=== PATIENT | female | born 1970 | race Caucasian/White ===

== ENCOUNTER 2023-09-30 21:01 | Emergency (ER) | payer BC, SELFPAY ==
[2023-09-30] VITALS (7 sets, daily range): BP systolic 101–120; BP diastolic 70–78; PULSE 62–67; RESP 16–28; TEMP 36.4; O2SAT 94–99; BMI 21.5
--- NOTE | 2023-09-30 21:12 | DI.RAD.S_ITS ---
PROCEDURE: XR CHEST 1V INDICATIONS: chest pain TECHNIQUE: One view of the chest was acquired. COMPARISON: None. FINDINGS: Surgical changes and devices: None. Lungs and pleura: Lungs are clear. No pleural effusions or pneumothorax. Mediastinum: Mediastinal contours appear normal. Heart size is normal. Bones and chest wall: No suspicious bony lesions. Overlying soft tissues appear unremarkable. IMPRESSION: No acute cardiopulmonary abnormality is seen. Approved by: Lul Alvarez M.D. on 09/30/2023 at 21:54
[2023-09-30 21:48] LABS: Add Manual Diff / Slide Review NO; Basophils Absolute Auto 0 /uL (0-100); Basophils Percent Auto 0.7 % (0-2); Eosinophils Absolute Auto 100 /uL (0-450); Eosinophils Percent Auto 2.7 % (2-4); Hemoglobin 14.7 g/dL (12.0-16.0); Lymphocytes Absolute Auto 1700 /uL (1100-4500); Lymphocytes Percent Auto 40.8 % (25-40); Mean Corpuscular HGB Conc 33.5 % (30-36); Mean Corpuscular Hemoglobin 31.3 PG (26-34); Mean Corpuscular Volume 93.4 fL (80-100); Monocytes Absolute Auto 300 /uL (0-900); Monocytes Percent Auto 7.9 % (3-14); Neutrophils Absolute Auto 1900 /uL (1500-7000); Neutrophils Percent Auto 47.9 % (50-75); Platelet Count 165 X10^3/uL (150-400); Red Blood Cell Count 4.71 X10^6/uL (4.0-5.2); Red Cell Distribution Width 13.6 % (11.6-14.8)
--- NOTE | 2023-09-30 21:51 | ED.CHESTPAIN ---
HPI - Chest Pain General Chief Complaint: Chest Pain Stated Complaint: heart attach sypmtoms Time Seen by Provider: 09/30/23 21:29 Source: patient Mode of arrival: Ambulatory Limitations: no limitations History of Present Illness HPI narrative: Patient is a 52-year-old female who has been having off and on chest discomfort for the past several days/weeks. She states that it does seem to be on both sides of her chest but earlier today was on the right side. No shortness of breath. No lower extremity swelling. Has seen her primary doctor. Had an EKG. Was told that she should follow up with a carbon capture power plant engineer. Has an appointment with cardiology of the end of this month. She was told by her primary doctor for any of her symptoms continue to worsen that she should be evaluated. She denies abdominal pain or nausea vomiting. No prior history of heart disease. Related Data Previous Rx's Medication Instructions Recorded doxycycline hyclate 100 mg capsule 100 mg PO BID #14 caps 06/03/22 nirmatrelvir 300 mg (150 mg See Rx Instructions PO .COMPLEX 06/03/22 x2)-ritonavir 100 mg tablet,dose #30 ea pack (Paxlovid) Allergies Allergy/AdvReac Type Severity Reaction Status Date / Time Sulfa (Sulfonamide AdvReac Unknown Rash Verified 09/30/23 21:04 Antibiotics) [SULFA (SULFONAMIDE ANTIBIOTICS)] Review of Systems Review of Systems Narrative: See HPI Patient History Social History Smoking Status: Never smoker Smoking Status: Never smoker Substance Use Type: does not use Exam Initial Vital Signs Initial Vital Signs: Vital Signs Temperature 97.5 F L 09/30/23 21:04 Pulse Rate 67 09/30/23 21:04 Respiratory Rate 16 09/30/23 21:04 Blood Pressure 120/76 09/30/23 21:04 Pulse Oximetry 97 09/30/23 21:04 Oxygen Delivery Method Room Air 09/30/23 21:04 Const General: cooperative, comfortable and No ill appearing HENMT Head: normal to inspection and normocephalic Resp Effort & Inspection: normal respiratory effort Auscultation: clear to auscultation bilaterally Cardio Rate: regular rate Rhythm: regular rhythm GI Inspection: normal to inspection Extrem General: No edema Scores HEART Score Heart Score history: Slightly Suspicious Heart Score EKG: Normal Heart Score Age: 45-64 years old Heart Score risk factors: No known risk factors Heart Score troponin: < or = to normal limit Heart Score Total: 1 Course Orders Ordered: ED Orders 09/30/23 21:12 XR chest 1V Stat EKG-12 Lead Stat 09/30/23 21:36 Complete Blood Count AUTO DIFF Stat Comprehensive Metabolic Panel Stat Lipase Stat Magnesium Stat PTT Partial Thromboplastin Gio Stat Prothrombin Time INR Stat Troponin & CK Cardiac Panel Stat Vital Signs Vital signs: Vital Signs - 8 hr 09/30/23 21:04 09/30/23 21:13 09/30/23 21:13 Temperature 97.5 F L Pulse Rate 67 66 Respiratory Rate 16 19 Blood Pressure 120/76 110/78 Pulse Oximetry 97 97 Oxygen Delivery Method Room Air 09/30/23 21:30 09/30/23 22:00 09/30/23 22:17 Temperature Pulse Rate 66 67 62 Respiratory Rate 18 28 H 25 H Blood Pressure Pulse Oximetry 99 98 96 Oxygen Delivery Method 09/30/23 22:17 09/30/23 22:30 09/30/23 22:30 Temperature Pulse Rate 63 Respiratory Rate 21 Blood Pressure 102/72 101/72 Pulse Oximetry 94 Oxygen Delivery Method 09/30/23 23:00 09/30/23 23:00 Temperature Pulse Rate 64 Respiratory Rate 22 Blood Pressure 103/70 Pulse Oximetry 94 Oxygen Delivery Method MDM - Chest Pain Lab Data Attestation: I reviewed the patient's lab results. 09/30/23 21:36 09/30/23 21:36 Labs: Lab Results 09/30/23 Range/Units 21:36 WBC 4.0 L (4.5-11.0) X10^3/uL RBC 4.71 (4.0-5.2) X10^6/uL Hgb 14.7 (12.0-16.0) g/dL Hct 44.0 (36-46) % MCV 93.4 (80-100) fL MCH 31.3 (26-34) PG MCHC 33.5 (30-36) % RDW 13.6 (11.6-14.8) % Plt Count 165 (150-400) X10^3/uL Neut % (Auto) 47.9 L (50-75) % Lymph % (Auto) 40.8 H (25-40) % Guthrie % (Auto) 7.9 (3-14) % Eos % (Auto) 2.7 (2-4) % Baso % (Auto) 0.7 (0-2) % Neut # (Auto) 1900 (2487-8700) /uL Lymph # (Auto) 1700 (7698-9890) /uL Guthrie # (Auto) 300 (0-900) /uL Eos # (Auto) 100 (0-450) /uL Baso # (Auto) 0 (0-100) /uL PT 11.1 (9.4-12.5) SECONDS INR 1.0 (0.9-1.3) APTT 21 L (25.1-36.5) SECONDS Sodium 140 (137-145) mmol/L Potassium 4.3 (3.4-5.1) mmol/L Chloride 103 (98-107) mmol/L Carbon Dioxide 30 (22-32) mmol/L BUN 10 (7-17) mg/dL Creatinine 0.53 (0.52-1.04) mg/dL Estimated GFR > 60 (>60) mL/min BUN/Creatinine Ratio 18.9 (6-22) Glucose 71 (70-100) mg/dL Calcium 10.1 (8.4-10.2) mg/dL Magnesium 2.1 (1.6-2.3) mg/dL Total Bilirubin 0.7 (0.2-1.3) mg/dL AST 59 H (14-36) IU/L ALT 31 (<35) IU/L Alkaline Phosphatase 60 (38-126) U/L Total Creatine Kinase 90 (30-135) U/L Troponin I < 0.012 (0.01-0.034) ng/mL Total Protein 8.5 H (6.3-8.2) g/dL Albumin 5.1 H (3.5-5.0) g/dL Globulin 3.4 (1.7-4.1) g/dL Albumin/Globulin Ratio 1.5 (1.0-2.8) Lipase 289 (23-300) U/L Imaging Data Chest x-ray: Radiologist's Impression: PROCEDURE: XR CHEST 1V INDICATIONS: chest pain TECHNIQUE: One view of the chest was acquired. COMPARISON: None. FINDINGS: Surgical changes and devices: None. Lungs and pleura: Lungs are clear. No pleural effusions or pneumothorax. Mediastinum: Mediastinal contours appear normal. Heart size is normal. Bones and chest wall: No suspicious bony lesions. Overlying soft tissues appear unremarkable. IMPRESSION: No acute cardiopulmonary abnormality is seen. ECG Data Attestation: I personally reviewed and interpreted this ECG as follows: Interpretation: Sinus rhythm Ventricular rate is 72 Normal axis Normal QRS Normal QTC No ST T wave changes MDM Narrative Medical decision making narrative: Low risk heart score, nonischemic EKG, negative troponin, chest x-ray is unremarkable. I have low suspicion that this is ACS although a stress test and follow-up with cardiology would be warranted his next steps. She can contact her primary doctor for this and to keep her appointment with cardiology for later this month. No indication to change any current medications. She was given return precautions and follow-up instructions. She expressed understanding and agreement. Discharge Plan Departure Patient Disposition: Home Clinical Impression: Atypical chest pain Instructions: DI for Atypical Chest Pain Activity Restrictions/Additional Instructions: I recommend that you talk with your primary doctor about potentially getting a stress test performed before you see your carbon capture power plant engineer at the end of the month. I do recommend that you keep that appointment with the carbon capture power plant engineer. Return to the emergency department for new symptoms. Prescriptions: No Action Paxlovid 300 mg (150 mg x 2)-100 mg tablets,dose pack See Rx Instructions PO .COMPLEX Qty: 30 0RF Rx Instructions: take TWO 150 mg tablets of nirmatrelvir with ONE 100 mg tablet of ritonavir twice daily for 5 days PO doxycycline hyclate 100 mg capsule 100 mg PO BID Qty: 14 0RF Referrals: Bryson Branch MD [Primary Care Provider] - Stand Alone Forms: Patient Portal/API
[2023-09-30 21:56] LABS: Prothrombin Time 11.1 SECONDS (9.4-12.5)
[2023-09-30 21:58] LABS: PTT Partial Thromboplastin Tim 21 SECONDS (25.1-36.5)
[2023-09-30 22:01] LABS: Alanine Aminotransferase 31 IU/L (<35); Albumin 5.1 g/dL (3.5-5.0); Albumin Globulin Ratio 1.5 (1.0-2.8); Alkaline Phosphatase 60 U/L (38-126); Aspartate Aminotransferase 59 IU/L (14-36); BUN Creatinine Ratio 18.9 (6-22); Bilirubin Total 0.7 mg/dL (0.2-1.3); Blood Urea Nitrogen 10 mg/dL (7-17); Calcium 10.1 mg/dL (8.4-10.2); Carbon Dioxide 30 mmol/L (22-32); Chloride 103 mmol/L (98-107); Creatine Kinase 90 U/L (30-135); Estimated Glomerular Filt Rate > 60 mL/min (>60); Globulin 3.4 g/dL (1.7-4.1); Glucose 71 mg/dL (70-100); Lipase 289 U/L (23-300); Magnesium 2.1 mg/dL (1.6-2.3); Potassium 4.3 mmol/L (3.4-5.1); Sodium 140 mmol/L (137-145); Total Protein 8.5 g/dL (6.3-8.2)
[2023-09-30 22:02] LABS: HEMOLYSIS 57 (0-50)
[2023-09-30 22:12] LABS: Troponin I < 0.012 ng/mL (0.01-0.034)
== END 2023-09-30 23:28 | disposition home or self-care (01) ==
PROVIDERS: Emergency Provider Emergency Medicine; PCP Family Medicine
DX: R07.89 Other chest pain (principal)
CPT/HCPCS: 36415; 71045; 80053; 82550; 83690; 83735; 84484; 85025; 85610; 85730; 93005; 99284

== ENCOUNTER 2023-10-08 18:48 | Emergency (ER) | payer BC, SELFPAY ==
[2023-10-08] VITALS (57 sets, daily range): BP systolic 101–139; BP diastolic 66–90; PULSE 53–72; RESP 18; TEMP 36.6; O2SAT 94–100; BMI 21.5
--- NOTE | 2023-10-08 19:00 | DI.RAD.S_ITS ---
PROCEDURE: XR KNEE RT 3V INDICATIONS: Fall onto rocks, wrist splinted. TECHNIQUE: 3 views of the knee were acquired. COMPARISON: None. FINDINGS: Bones: No displaced fracture or dislocation. Patellar enthesopathy. Soft tissues: Small knee joint effusion. Possible prepatellar swelling. IMPRESSION: No acute radiographic abnormality. Small knee joint effusion. If there is high concern for occult injury, consider repeat radiography or cross-sectional imaging. Dictated by: David Villar M.D. on 10/08/2023 at 19:38 Approved by: David Villar M.D. on 10/08/2023 at 19:39
--- NOTE | 2023-10-08 19:00 | DI.RAD.S_ITS ---
PROCEDURE: XR FOREARM LT 2V INDICATIONS: Fall onto rocks, wrist splinted. TECHNIQUE: 2 views of the forearm were acquired. COMPARISON: None. FINDINGS: Bones: No displaced fracture of the radial or ulnar shafts. Wrist findings are separately dictated. Soft tissues: Soft tissue swelling is seen in the distal forearm. IMPRESSION: No acute osseous abnormality in the forearm. Wrist fracture findings are separately dictated Dictated by: David Villar M.D. on 10/08/2023 at 19:36 Approved by: David Villar M.D. on 10/08/2023 at 19:37
--- NOTE | 2023-10-08 19:00 | DI.RAD.S_ITS ---
PROCEDURE: XR WRIST LT MIN 3V INDICATIONS: Fall onto rocks, wrist splinted. TECHNIQUE: 3 views of the wrist were acquired. COMPARISON: None. FINDINGS: Bones: Moderately comminuted, impacted, and volar angulation of the distal radius fracture. Minimally displaced ulnar styloid fracture. Soft tissues: Soft tissue swelling. IMPRESSION: Moderately comminuted, impacted, and angulated distal radius fracture. Minimally displaced ulnar styloid fracture. The scapholunate interval is mildly prominent between 2-3 mm. Dictated by: David Villar M.D. on 10/08/2023 at 19:37 Approved by: David Villar M.D. on 10/08/2023 at 19:38
--- NOTE | 2023-10-08 19:04 | DI.RAD.S_ITS ---
PROCEDURE: XR CHEST 2V INDICATIONS: Fall onto rocks right flank pain TECHNIQUE: 2 views of the chest were acquired. COMPARISON: Located Within [facility], CR, XR CHEST 1V, 09/30/2023, 21:12. FINDINGS: Surgical changes and devices: None. Lungs and pleura: No dense airspace disease or pleural effusion Mediastinum: Normal heart size Bones and chest wall: Unremarkable IMPRESSION: No acute radiographic abnormality. If there is high concern for occult injury, consider repeat radiography or cross-sectional imaging. Dictated by: David Villar M.D. on 10/08/2023 at 19:39 Approved by: David Villar M.D. on 10/08/2023 at 19:40
--- NOTE | 2023-10-08 19:24 | ED.FALL ---
HPI - Fall General Chief Complaint: Fall Stated Complaint: Fall, L Wrist/R Knee/Ribs injured Time Seen by Provider: 10/08/23 19:24 Source: patient Mode of arrival: Ambulatory History of Present Illness HPI Narrative: 52-year-old female was walking around [place] on [facility] approximally 3:00 p.m., fell tripping on a rock, groundlevel fall, complains of left wrist pain and deformity, right lower anterior chest discomfort, right anterior knee abrasion discomfort. Was assisted off trail by other hikers to her car. Drove to [facility], ground transport arrival to ED for further evaluation. No loss of consciousness, neck pain, upper back pain, lower back pain. Denies trouble breathing. No facial pain, headache, vision changes, tooth or tongue pain. No other injuries. She does not take blood thinner medications. Related Data Previous Rx's Medication Instructions Recorded doxycycline hyclate 100 mg capsule 100 mg PO BID #14 caps 06/03/22 nirmatrelvir 300 mg (150 mg See Rx Instructions PO .COMPLEX 06/03/22 x2)-ritonavir 100 mg tablet,dose #30 ea pack (Paxlovid) tramadol 50 mg tablet 50 mg PO Q6H PRN pain 5 days #20 10/09/23 tabs Allergies Allergy/AdvReac Type Severity Reaction Status Date / Time Sulfa (Sulfonamide AdvReac Unknown Rash Verified 10/08/23 18:59 Antibiotics) [SULFA (SULFONAMIDE ANTIBIOTICS)] Review of Systems Review of Systems ROS Unobtainable: All systems reviewed & are unremarkable except as noted in HPI and below Patient History Social History Smoking Status: Never smoker Smoking Status: Never smoker Substance Use Type: does not use Exam Narrative Exam Narrative: No distress, clear speech, left wrist in splint from EMS Initial Vital Signs Initial Vital Signs: Vital Signs Temperature 97.9 F 10/08/23 18:51 Pulse Rate 58 L 10/08/23 18:51 Respiratory Rate 18 10/08/23 18:51 Blood Pressure 139/90 10/08/23 18:51 Pulse Oximetry 99 10/08/23 18:51 Oxygen Delivery Method Room Air 10/08/23 18:51 Const General: cooperative HENMT Head: normal to inspection Nose: external nose normal Face and sinus: normal facial exam, sinuses nontender and face symmetric Mouth: oral mucosae normal, lip normal, tongue normal, moist mucous membranes, No drooling, No mouth trauma and No muffled voice Teeth and gingiva: dentition normal Throat: posterior oropharynx normal Eyes General: Yes appearance normal, both eyes and all related structures Neck Neck: normal visual inspection Other: No posterior neck tenderness midline or paraspinal Chest Chest: normal inspection of the chest Resp Effort & Inspection: normal respiratory effort and able to speak in complete sentences Auscultation: clear to auscultation bilaterally Cardio Rate: regular rate Rhythm: regular rhythm Heart Sounds: no murmurs Pulses: radial pulses present and dorsalis pedis present GI Inspection: normal to inspection Palpation: No tender Other: deferred Back/Spine/Pelvis Back: normal to inspection Skin General: no rashes or lesions noted Neuro General: moves all extremities and no focal motor deficits Extrem Other: Left wrist with distal swelling and deformity, dinner fork like deformity, suspected Colle's fracture. No visible bone, good pulses and skin color left hand/fingers. No tenderness left mid-proximal forearm, elbow, upper arm, shoulder, clavicle. Right knee small superficial erythema abrasion, without obvious effusion, no tenderness medial or lateral joint line. Right upper extremity atraumatic, both legs without any additional traumatic findings. Psych Appearance: grossly normal Procedures Procedural Sedation Consent signed: Yes Time out performed: Yes Indication: fracture/dislocation reduction Presedation Evaluation: No significant past medical history, no sleep apnea, had prior unevetful experience with sedation/anesthesia ASA Class: I Time of Last PO Intake: 13:00 Preparation: residential monitor applied, pulse oximeter and supplemental O2 applied IV Propofol dose (mg): 120 Intraservice time/total sedation time (min): 20 ED Sedation Level: Moderate (Concious) Patient Tolerated Procedure: Well and No complications Complications: none Additional Comments: Tolerated procedure with initial IVP Propofol 40mg x2 boluses, then serial 20mg boluses during reduction and application OCL splint, splint molding, post-procedure imaging. Recovery MSE to prior baseline. Good capillary refill fingertips. Course Orders Ordered: Discontinued Medications Hydromorphone HCl (Hydromorphone 0.5 Mg Inj) 0.5 mg IV NOW ONE Stop: 10/08/23 22:32 Last Admin: 10/08/23 22:40 Dose: 0.5 mg Documented By: AB Sodium Chloride (Normal Saline 0.9%) 1,000 mls @ 1,000 mls/hr IV BOLUS ONE Stop: 10/09/23 05:06 Last Infusion: 10/09/23 02:30 Dose: Infused Documented By: Admin: 10/09/23 01:30 Dose: 1,000 mls/hr Documented By: Ondansetron HCl (Ondansetron 4 Mg/2 Ml Inj) 4 mg IV NOW ONE Stop: 10/08/23 22:32 Last Admin: 10/08/23 22:35 Dose: 4 mg Documented By: Propofol (Propofol 200 Mg/20 Ml Vial) 135 mg 2 mg/kg (135 mg) IV NOW ONE Stop: 10/09/23 01:15 Last Admin: 10/09/23 01:30 Dose: 135 mg Documented By: Tramadol HCl (Tramadol 50 Mg Tablet) 50 mg PO NOW ONE Stop: 10/09/23 03:28 Last Admin: 10/09/23 04:09 Dose: 50 mg Documented By: Tramadol HCl (Tramadol 50 Mg Prepack) 1 bottle MISC DIRECTED ONE Stop: 10/09/23 03:28 Last Admin: 10/09/23 04:09 Dose: 1 bottle Documented By: Vital Signs Vital signs: Vital Signs - 8 hr 10/08/23 19:34 10/08/23 19:35 10/08/23 19:40 Pulse Rate 60 59 L 63 Respiratory Rate Blood Pressure Pulse Oximetry 99 99 99 10/08/23 19:45 10/08/23 19:50 10/08/23 19:55 Pulse Rate 64 66 63 Respiratory Rate Blood Pressure Pulse Oximetry 99 99 99 10/08/23 20:00 10/08/23 20:05 10/08/23 20:10 Pulse Rate 66 65 62 Respiratory Rate Blood Pressure Pulse Oximetry 98 99 98 10/08/23 20:15 10/08/23 20:20 10/08/23 20:25 Pulse Rate 64 64 65 Respiratory Rate Blood Pressure Pulse Oximetry 98 98 99 10/08/23 20:30 10/08/23 20:35 10/08/23 20:40 Pulse Rate 64 62 63 Respiratory Rate Blood Pressure Pulse Oximetry 99 98 99 10/08/23 20:45 10/08/23 20:50 10/08/23 20:55 Pulse Rate 63 67 72 Respiratory Rate Blood Pressure Pulse Oximetry 99 98 99 10/08/23 21:00 10/08/23 21:05 10/08/23 21:23 Pulse Rate 70 69 60 Respiratory Rate 18 Blood Pressure Pulse Oximetry 99 99 99 10/08/23 21:25 10/08/23 21:30 10/08/23 21:35 Pulse Rate 63 62 63 Respiratory Rate Blood Pressure Pulse Oximetry 100 99 99 10/08/23 21:40 10/08/23 21:45 10/08/23 21:50 Pulse Rate 62 65 60 Respiratory Rate Blood Pressure Pulse Oximetry 99 99 98 10/08/23 21:55 10/08/23 22:00 10/08/23 22:05 Pulse Rate 65 63 62 Respiratory Rate Blood Pressure Pulse Oximetry 98 99 99 10/08/23 22:10 10/08/23 22:15 10/08/23 22:20 Pulse Rate 66 65 60 Respiratory Rate Blood Pressure Pulse Oximetry 98 98 98 10/08/23 22:21 10/08/23 22:21 10/08/23 22:25 Pulse Rate 65 62 Respiratory Rate Blood Pressure 104/71 Pulse Oximetry 97 99 10/08/23 22:30 10/08/23 22:30 10/08/23 22:35 Pulse Rate 62 59 L Respiratory Rate Blood Pressure 108/74 Pulse Oximetry 99 99 10/08/23 22:40 10/08/23 22:45 10/08/23 22:45 Pulse Rate 60 59 L Respiratory Rate Blood Pressure 101/71 Pulse Oximetry 99 94 10/08/23 22:50 10/08/23 22:55 10/08/23 23:00 Pulse Rate 57 L 58 L Respiratory Rate Blood Pressure 103/66 Pulse Oximetry 95 94 10/08/23 23:00 10/08/23 23:05 10/08/23 23:10 Pulse Rate 55 L 57 L 57 L Respiratory Rate Blood Pressure Pulse Oximetry 94 94 95 10/08/23 23:15 10/08/23 23:15 10/08/23 23:20 Pulse Rate 56 L 57 L Respiratory Rate Blood Pressure 106/68 Pulse Oximetry 94 94 10/08/23 23:25 10/08/23 23:30 10/08/23 23:30 Pulse Rate 53 L 54 L Respiratory Rate Blood Pressure 104/69 Pulse Oximetry 94 96 10/08/23 23:35 10/08/23 23:40 10/08/23 23:45 Pulse Rate 54 L 56 L Respiratory Rate Blood Pressure 104/67 Pulse Oximetry 95 96 10/08/23 23:45 10/08/23 23:50 10/08/23 23:55 Pulse Rate 54 L 54 L 55 L Respiratory Rate Blood Pressure Pulse Oximetry 96 97 98 10/09/23 00:00 10/09/23 00:00 10/09/23 00:05 Pulse Rate 54 L 56 L Respiratory Rate Blood Pressure 112/67 Pulse Oximetry 99 97 10/09/23 00:10 10/09/23 00:15 10/09/23 00:15 Pulse Rate 56 L 56 L Respiratory Rate Blood Pressure 109/71 Pulse Oximetry 97 98 10/09/23 00:20 10/09/23 00:25 10/09/23 00:30 Pulse Rate 59 L 55 L Respiratory Rate Blood Pressure 111/70 Pulse Oximetry 98 98 10/09/23 00:30 10/09/23 00:35 10/09/23 00:40 Pulse Rate 58 L 58 L 57 L Respiratory Rate Blood Pressure Pulse Oximetry 99 98 98 10/09/23 00:45 10/09/23 00:45 10/09/23 00:50 Pulse Rate 57 L 58 L Respiratory Rate Blood Pressure 106/71 Pulse Oximetry 98 99 10/09/23 00:55 10/09/23 01:00 10/09/23 01:00 Pulse Rate 56 L 56 L Respiratory Rate Blood Pressure 106/71 Pulse Oximetry 99 99 10/09/23 01:05 10/09/23 01:10 10/09/23 01:15 Pulse Rate 56 L 58 L 60 Respiratory Rate Blood Pressure Pulse Oximetry 98 98 98 10/09/23 01:15 10/09/23 01:20 10/09/23 01:25 Pulse Rate 58 L 60 Respiratory Rate Blood Pressure 112/74 Pulse Oximetry 98 98 10/09/23 01:30 10/09/23 01:30 10/09/23 01:35 Pulse Rate 66 Respiratory Rate Blood Pressure 116/82 102/72 Pulse Oximetry 99 10/09/23 01:35 10/09/23 01:40 10/09/23 01:40 Pulse Rate 60 59 L Respiratory Rate Blood Pressure 103/72 Pulse Oximetry 100 100 10/09/23 01:45 10/09/23 01:45 10/09/23 01:50 Pulse Rate 59 L Respiratory Rate Blood Pressure 114/76 116/80 Pulse Oximetry 100 10/09/23 01:50 10/09/23 01:55 10/09/23 01:55 Pulse Rate 59 L 59 L Respiratory Rate Blood Pressure 112/76 Pulse Oximetry 100 100 10/09/23 02:00 10/09/23 02:00 10/09/23 02:05 Pulse Rate 60 Respiratory Rate Blood Pressure 116/77 120/82 Pulse Oximetry 100 10/09/23 02:05 10/09/23 02:10 10/09/23 02:11 Pulse Rate 63 60 60 Respiratory Rate Blood Pressure Pulse Oximetry 100 100 10/09/23 02:11 10/09/23 02:15 10/09/23 02:15 Pulse Rate 59 L Respiratory Rate Blood Pressure 112/81 113/78 Pulse Oximetry 99 10/09/23 02:30 10/09/23 02:30 10/09/23 02:45 Pulse Rate 61 Respiratory Rate Blood Pressure 110/70 110/73 Pulse Oximetry 99 10/09/23 02:45 Pulse Rate 63 Respiratory Rate Blood Pressure Pulse Oximetry 93 MDM - Fall Differential Diagnosis Differential diagnosis: Likely fracture of wrist Lab Data Labs: Point of Care Testing Test Results Negative MDM Narrative Medical decision making narrative: 50-year-old with a fall, left wrist pain, right knee pain, right chest wall pain. Chest x-ray negative. Right knee x-ray negative. Left wrist and forearm x-ray shows moderately comminuted impacted angulated distal radius fracture, proximal aspect of forearm negative, also there is mention of a minimally displaced ulnar styloid fracture. Reduction delayed due to numerous other higher acuity emergencies in the department. IV conscious sedation was able to be administered for reduction which was successful, essentially anatomic reduction, placed in sugar-tong splint and sling. Follow up with orthopedic surgery recommended, contact information for local orthopedic surgery on-call Dr. Delatorre. But patient may follow up with her previous orthopedic surgeons in the [place] area. Copy of x-rays provided onto disc if needed. She was encouraged to try to see orthopedic surgery in the next few days so that surgical planning can be done before too much bone healing starts to happen, if surgical intervention is required. Tramadol has been helpful in the past, prepack dispensed, prescription sent. Follow up orthopedic surgery as above Procedure note, fracture reduction and splinting. See separate note for IV procedural conscious sedation. Patient consented for sedation and reduction and splinting, found to have an acute closed right impacted angulated comminuted distal radius Advised reduction, verbally consented. IV propofol sedation tolerated well. Reduction by me at bedside, with assistance from locate technician and RN. Manual left forearm wrist distraction-countertraction, manual pressure dorsal wrist, visible and palpable reduction, with continued distraction placed gauze cotton wrap, then sugar tong OCL from dorsal MCP around elbow to volar MCP, then application of rafa wrap. Moulding of the distal wrist dorsal-volar manual pressure by me after rafa wrap, to hold reduction. Post-reduction XRays showed improvement, anatomic position distal radius fracture fragments, also distal unlar styloid fracture noted. Improved, returned to baseline mental status, some tightness sensation fingers post splinting, slight loosening of rafa wrap by RN, improved symptoms. Stable for discharge. Discharge Plan Departure Patient Disposition: Home Clinical Impression: Displaced fracture of left ulna styloid process, initial encounter for closed fracture, Fall from ground level, Chest wall contusion Fracture of left distal radius Qualifiers: Encounter type: initial encounter Contusion of knee Qualifiers: Encounter type: initial encounter Activity Restrictions/Additional Instructions: Ground level fall while walking dog at home area [facility], left wrist pain, right knee pain, anterior chest discomfort. Chest x-ray negative. Right knee x-ray negative. However you did have a distal radius fracture on the left side which was comminuted in multiple pieces, angulated, and even impacted. This required reduction/straightening/lengthening. There was some delay in being able to accomplish the procedure due to numerous emergencies in the department and limited staff, single provider situation. We were able to give IV pain medications while awaiting opportunity to do procedure. Fracture reduction was accomplished with IV sedation medication, with good lengthening, post procedure x-rays looked anatomic in position. Follow up with Orthopedic surgery suggested, sometimes these comminuted fractures do require pinning or some other surgical intervention to stabilize. You were given contact information for local orthopedic surgery Dr. Delatorre, however you did express interest in following up with your established [facility] orthopedic surgeons due to previous good experiences there. Copies of your XRays were saved onto disc for review if you should follow-up remotely. Pain medications discussed, Tylenol as needed, tramadol home pack to take if needed. Prescriptions: New tramadol 50 mg tablet 50 mg PO Q6H PRN (Reason: pain) 5 Days Qty: 20 0RF No Action Paxlovid 300 mg (150 mg x 2)-100 mg tablets,dose pack See Rx Instructions PO .COMPLEX Qty: 30 0RF Rx Instructions: take TWO 150 mg tablets of nirmatrelvir with ONE 100 mg tablet of ritonavir twice daily for 5 days PO doxycycline hyclate 100 mg capsule 100 mg PO BID Qty: 14 0RF Referrals: Bryson Branch MD [Primary Care Provider] - Stand Alone Forms: Patient Portal/API
[2023-10-08] MEDS: ONDANSETRON 4 MG/2 ML INJ IV (22:35)
[2023-10-08] MEDS: HYDROMORPHONE 0.5 MG INJ IV (22:40)
[2023-10-09] VITALS (33 sets, daily range): BP systolic 102–120; BP diastolic 67–82; PULSE 54–66; RESP 18; O2SAT 93–100
--- NOTE | 2023-10-09 | DI.RAD.S_ITS ---
PROCEDURE: XR WRIST LT 2V INDICATIONS: POST REDUCTION TECHNIQUE: 2 views of the wrist were acquired. COMPARISON: [facility], CR, XR WRIST LT MIN 3V, 10/08/2023, 19:10. FINDINGS: Bones: Casting material obscures fine bony detail. Fracture at the distal radius and ulnar styloid. Anatomic alignment. No dislocations. No suspicious bony lesions. Soft tissues: No suspicious soft tissue calcifications. IMPRESSION: Interval casting. Distal radius fracture and ulnar styloid fracture. Dictated by: Terry Moralez M.D. on 10/09/2023 at 1:53 Approved by: Terry Moralez M.D. on 10/09/2023 at 1:55
[2023-10-09] MEDS: SODIUM CHLORIDE 0.9% 1,000 ML 1000 ML IV (01:30)
[2023-10-09] MEDS: propofoL 200 MG/20 ML VIAL 135 MG IV (01:30)
--- NOTE | 2023-10-09 03:04 | PC.NURSE ---
Manual manipulation of left wrist by Dr. Paula and assisted by JASMINE Laird
--- NOTE | 2023-10-09 03:05 | PC.NURSE ---
Reverse Sugar Tong 3 inch fiberglass splint placed to left arm. CMS checks completed.
--- NOTE | 2023-10-09 03:07 | PC.NURSE ---
Manual manipulation of splint by Dr. Paula
--- NOTE | 2023-10-09 03:07 | PC.NURSE ---
Post reduction xray completed and confirmed reduction successful. Sling placed on pt.
--- NOTE | 2023-10-09 03:19 | PC.NURSE ---
Sedation narrative: 0128 Time out 0130 40 mg Propofol IVP 0132 20 mg Propofol IVP 0134 [address] Paula, S Manual maniptulation of left wrist with Susana Vasquez fastener technologist assist 0137 Reverse Sugar tong splint applied to left wrist/forearm 0137 20 mg Propofol IVP 0137 1000 ml 0.9% NS hung wide open 0140 Manipulation of splint by Dr. Paula 0145 Post reduction Xray confirmed 0150 End Procedure 0205 RASS return to pre procedural 8
[2023-10-09] MEDS: TRAMADOL 50 MG PREPACK 1 BOTTLE MISC (04:09)
[2023-10-09] MEDS: TRAMADOL 50 MG TABLET PO (04:09)
== END 2023-10-09 04:11 | disposition home or self-care (01) ==
PROVIDERS: Emergency Provider Emergency Medicine; PCP Family Medicine
DX: S52.612A Displaced fracture of left ulna styloid process, initial encounter for closed fracture (principal); S52.502A Unspecified fracture of the lower end of left radius, initial encounter for closed fracture; S80.01XA Contusion of right knee, initial encounter; S20.211A Contusion of right front wall of thorax, initial encounter; W01.0XXA Fall on same level from slipping, tripping and stumbling without subsequent striking against object, initial encounter
CPT/HCPCS: 25605; 71046; 73090; 73100; 73110; 73562; 96361; 96374; 96375; 99152; 99284; 99285; J1170; J2405; J2704